=== PATIENT | male | born 1990 | race Caucasian/White ===

== ENCOUNTER 2019-04-27 22:36 | Emergency (ER) | payer SELFPAY ==
[~2019-04-27 22:36] MED LIST: HYDR-3140 PO; MULT1CAP41 PO; NO MEDS
[2019-04-27 22:37] VITALS: BP 153/93
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
== END 2019-04-27 22:51 | disposition home or self-care (01) ==
LOC: ER 22:40
DX: F10.920 Alcohol use, unspecified with intoxication, uncomplicated (principal); F10.129 Alcohol abuse with intoxication, unspecified
CPT/HCPCS: 99281